=== PATIENT | female | born 1955 | race African-American/Black ===

== ENCOUNTER 2018-11-12 17:18 | Emergency (ER) | payer MEDICARE ==
[~2018-11-12] VITALS: Ht 167.6 cm; Wt 62.0 kg
[2018-11-12] MEDS ORDERED: SODIUM CHLORIDE 0.9% 1,000 ML IV ONE (17:29)
[2018-11-12 19:12] VITALS: BP 110/62
[2018-11-12 19:30] LABS: BASOPHILS % 0.7 % (0.0-2.0); EOSINOPHILS % 0.4 % (0.0-5.0); HEMATOCRIT. 31.8 % (36.0-48.0); HEMOGLOBIN. 10.7 g/dL (12.0-16.0); LYMPHOCYTES % 28.1 % (20.0-50.0); MEAN CORPUSCULAR HEMOGLOBIN 35.3 pg (28.0-32.0); MEAN CORPUSCULAR VOLUME 105.3 fL (81.0-99.0); MONOCYTES % 7.1 % (2.0-8.0); NEUTROPHILS % 63.7 % (40.0-76.0); PLATELET 283 x1000/uL (130-400); RED BLOOD CELL COUNT 3.02 mill/uL (4.2-5.4); RED CELL DISTRIBUTION WIDTH 15.1 % (11.6-14.6)
[2018-11-12 19:36] LABS: CHLORIDE 106 mEq/L (98-107)
[2018-11-12 19:42] LABS: ETHANOL BLOOD 192 mg/dL
== END 2018-11-12 19:13 | disposition home or self-care (01) ==
LOC: ER 17:18
DX: R55 Syncope and collapse (principal); I11.0 Hypertensive heart disease with heart failure; I25.2 Old myocardial infarction; E78.00 Pure hypercholesterolemia, unspecified
CPT/HCPCS: 36415; 70450; 71045; 80053; 80320; 84484; 85025; 93005; 99284; J7030; G0480

== ENCOUNTER → 2019-03-13 | Emergency (ER) | payer MEDICARE ==
[~2019-03-13] VITALS: Ht 162.6 cm; Wt 50.0 kg
[2019-03-13 14:00] VITALS: BP 128/70
== END | disposition left against medical advice (07) ==
LOC: ER 13:19
DX: S00.83XA Contusion of other part of head, initial encounter (principal); F10.129 Alcohol abuse with intoxication, unspecified; I25.2 Old myocardial infarction; I11.9 Hypertensive heart disease without heart failure; E78.00 Pure hypercholesterolemia, unspecified; I25.10 Atherosclerotic heart disease of native coronary artery without angina pectoris; W01.0XXA Fall on same level from slipping, tripping and stumbling without subsequent striking against object, initial encounter; Y93.89 Activity, other specified; Y92.89 Other specified places as the place of occurrence of the external cause; Y99.8 Other external cause status; Y90.9 Presence of alcohol in blood, level not specified
CPT/HCPCS: 99283